=== PATIENT | female | born 1990 | race Hispanic/Latino ===

== ENCOUNTER 2021-07-04 17:42 | Emergency (ER) | payer OTHER, SELFPAY ==
[2021-07-04 17:52] VITALS: BP 147/78; PULSE 82; RESP 18; TEMP 36.6; O2SAT 98; BMI 31.9
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
== END 2021-07-04 19:00 | disposition home or self-care (01) ==
PROVIDERS: Emergency Provider Emergency Medicine
DX: S00.12XA Contusion of left eyelid and periocular area, initial encounter (principal); S00.11XA Contusion of right eyelid and periocular area, initial encounter; S40.021A Contusion of right upper arm, initial encounter; S80.11XA Contusion of right lower leg, initial encounter; H11.31 Conjunctival hemorrhage, right eye; Y04.8XXA Assault by other bodily force, initial encounter
CPT/HCPCS: 99281